=== PATIENT | male | born 1975 | race Hispanic/Latino ===

== ENCOUNTER 2020-04-06 18:52 | Inpatient (IN) | payer SELFPAY ==
[2020-04-06 19:40] LABS: #Lymphocytes 0.6 thou/uL (1.20-3.40); #Monocytes 0.6 thou/uL (0.11-0.59); %Eosinophils 0.1 % (0.0-10.0); %Lymphocytes 3.6 % (21.0-51.0); %Monocytes 4.1 % (0.0-10.0); %Neutrophils 92.1 % (42.0-75.0); Hemoglobin 15.3 g/dL (14.0-18.0); Mean Corpuscular HGB CONC 35.2 g/dL (32.0-36.0); Mean Corpuscular Hemoglobin 32.2 pg (27.0-31.0); Mean Corpuscular Volume 91.3 fL (78.0-98.0); Mean Platelet Volume 6.6 fL (7.4-10.4); Platelet Count 257 thou/uL (130-400); RBC Distribution Width 11.4 % (11.5-14.5); Red Blood Cell (RBC) Count 4.76 mill/uL (4.70-6.10); White Blood Cell (WBC) Count 15.2 thou/uL (4.8-10.8)
[2020-04-06] MEDS ORDERED: Morphine 4 MG/ML VIAL ONE (19:41)
[2020-04-06 19:46] LABS: PTT 28.8 sec (22.9-36.1); Prothrombin Time 13.4 sec (12.0-14.7)
[2020-04-06 20:01] LABS: ALT (SGPT) 38 U/L (8-55); AST (SGOT) 21 U/L (5-34); Albumin 4.4 g/dL (3.5-5.0); Alkaline Phosphatase 91 U/L (40-110); Anion Gap 16 mmol/L (10-20); BUN (Urea Nitrogen) 21 mg/dL (8.9-20.6); Bilirubin, Total 0.5 mg/dL (0.2-1.2); Calc. Creatinine Clearance 0 mL/min (70-130); Calcium 9.2 mg/dL (7.8-10.44); Carbon Dioxide 22 mmol/L (22-29); Chloride 102 mmol/L (98-107); Estimated GFR-MDRD 74; Globulin 2.7 g/dL (2.4-3.5); Glucose 141 mg/dL (70-105); Potassium 3.8 mmol/L (3.5-5.1); Protein, Total 7.1 g/dL (6.0-8.3); Sodium 136 mmol/L (136-145)
--- NOTE | 2020-04-06 20:10 | RAD ---
Right ankle 3 views HISTORY: Fall. Injury. FINDINGS: There is near complete medial dislocation of the talus in relation to the distal tibia with 1.2 cm impaction of the lateral talar dome into the comminuted fracture at the medial tibial plafond. Extensive medial displacement of a comminuted sagittally oriented fracture through the media l aspect of the distal tibia with additional comminuted oblique fracture at the base of the medial malleolus. Multiple small ossific fragments about the ankle mortise and fracture planes. Distal fibula is intact. IMPRESSION : Pilon fracture distal right tibia with medial dislocation.
--- NOTE | 2020-04-06 20:22 | RAD ---
SINGLE VIEW OF THE CHEST: 04/06/20 COMPARISON: None. HISTORY: Fall with ankle fracture and chest pain. FINDINGS: Single view of the chest shows a normal sized cardiomediastinal silhouette. There is no evidence of c onsolidation, mass, or pleural effusion. The bones are unremarkable. IMPRESSION: No evidence of acute cardiopulmonary disease. POS: EAA
[2020-04-06] MEDS ORDERED: Fentanyl 100 MCG/2 ML VIAL ONE ×4 (20:48→23:25)
[2020-04-06] MEDS ORDERED: Midazolam HCl 2 mg/2 ml Vial ONE (20:48)
[2020-04-06] MEDS ORDERED: Ondansetron PF 4 MG/2 ML Vial IVP PRN (20:50)
[2020-04-06] MEDS ORDERED: Dextrose 50% Abboject 50 ML SYRINGE SLOW IVP PRN (20:50)
[2020-04-06] MEDS ORDERED: hydrALAZINE 20 MG/ML VIAL SLOW IVP PRN (20:50)
[2020-04-06] MEDS ORDERED: Dextrose 5% in Water 1,000 ML IV PRN (20:50)
[2020-04-06] MEDS ORDERED: traMADol HCl 50 MG TAB PO PRN ×2 (20:52)
--- NOTE | 2020-04-06 21:13 | RAD ---
Right foot 3 views HISTORY: Fall. Injury. FINDINGS: Lisfranc joint alignment is anatomic. Scattered mild osteoarthritic changes are apparent. Plantar arch is maintained. Soft tissue swelling about the ankle and hindfoot. Comminuted intra-articular fracture dislocation at the ankle is partially visualized. IMPRESSION : Ankle fracture/dislocation. No acute abnormalities of the foot are demonstrated.
[2020-04-06] MEDS ORDERED: PROPOFOL 200 MG/20 ML VIAL ONE (21:27)
[2020-04-06] MEDS ORDERED: Lidocaine 1% PF 5 ML VIAL ONE (21:27)
[2020-04-06] MEDS ORDERED: Rocuronium Bromide 10 MG/ML (10ML VIAL) ONE (21:27)
--- NOTE | 2020-04-06 22:16 | HP ---
The trauma surgeon is Dr. Giron. CONSULTING PHYSICIAN: Dr. Guzman. HISTORY OF PRESENT ILLNESS: The patient is a 45-year-old male who presents to the emergency department via EMS after a fall from a roof about 9 feet from the ground. The patient reports it was a mechanical fall. He is complaining of right distal tib-fib pain. There is deformity at the site. He denies loss of consciousness or hitting his head. He denies anticoagulation use. He reported landing on his feet and subsequently onto his left side. States he did not hit his head at any time. He was not able to ambulate afterwards. He reports his pain is at a 7/10 after receiving IV pain medications. REVIEW OF SYSTEMS: All additional 10-point review of systems negative except as indicated above. PAST MEDICAL HISTORY: None. PAST SURGICAL HISTORY: None. SOCIAL HISTORY: The patient denies tobacco, drug, and alcohol use. 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 MEDICATIONS: None. ALLERGIES: NO KNOWN DRUG ALLERGIES. PHYSICAL EXAMINATION: VITAL SIGNS: Heart rate 98, respirations 22 oxygen saturation 97% on room air, and blood pressure 155/84. PRIMARY SURVEY: Airway intact. Adequate breath sounds bilaterally. 2+ pulses in bilateral radials, femorals, and DPs. GCS 15. Gross motor and sensation intact in all extremities. No laceration, bruising, or external bleeding. He has obvious deformity to his right distal tib-fib. SECONDARY SURVEY: HEAD: Normocephalic and atraumatic. No gross palpable skull deformities or tenderness. EYES: Pupils 3-2, equal, round, reactive bilaterally. ENT: No signs of trauma. C-SPINE: No step-offs or deformities, nontender. C-collar not in place. CHEST: Nontender. No crepitus, no abrasions or ecchymosis. Equal chest movement. ABDOMEN: Soft, nontender, nondistended. PELVIS: Stable to palpation. Nontender. No abrasions or ecchymosis noted. RECTAL: Deferred. GENITOURINARY: Deferred. EXTREMITIES: No gross deformity of the bilateral upper and left lower extremities. He has an obvious distal tib-fib fracture with significant swelling to the right foot. 2+ pulses in bilateral radials, femorals, and DPs. BACK/SPINE: No step-offs or deformities or tenderness to palpation of the thoracic or lumbar spine. No abrasions or ecchymosis noted. NEUROLOGIC: 5/5 strength in the bilateral nurse advocate and left lower extremity plantar flexion and dorsiflexion. The patient is not able to fully participate in right lower extremity dorsi and plantar flexion secondary to deformity and pain. The patient has gross normal sensation x4 extremities. LABORATORY FINDINGS: White count 15.2, hemoglobin 15.3, hematocrit 48.4, platelets 257. INR 1. Sodium 136, potassium 3.8, chloride 102, bicarb 22, BUN 21, creatinine 1.07, glucose 141, and lactic acid 4.3. DIAGNOSTIC FINDINGS: X-ray of the right ankle demonstrates pilon fracture, distal right tibia with medial displacement. Chest x-ray demonstrates no evidence of acute cardiopulmonary disease. X-ray of the right foot demonstrates ankle fracture/dislocation. No acute abnormalities of the foot are demonstrated. ASSESSMENT: 1. Mechanical fall from roof, about 9 feet. 2. Right distal tibial fracture, pilon. 3. Elevated lactic acid. 4. Acute traumatic pain. PLAN: The patient will be admitted to the Trauma Service. Dr. Guzman has evaluated the patient, and plan is to take the patient to the OR from the emergency department this evening to address his right distal tibial fracture. The patient will then go to the regular surgical nursing floor. He has already received a liter of fluid. We will continue IV fluid resuscitation. Repeat blood work in the morning including lactic acid. We will place the patient on both scheduled and p.r.n. pain medications. He will work with Physical and Occupational Therapy tomorrow postoperatively. If orthopedic surgery does not have any further orthopedic interventions planned, he will likely be discharged home tomorrow. This patient was discussed with Dr. Giron before this dictation. Job ID: [id number]
[2020-04-06] MEDS ORDERED: Succinylcholine Chloride 20 MG/ML 10 ml SYRINGE FS ONE (22:35)
[2020-04-06] MEDS ORDERED: SUGAMMADEX SODIUM 200 MG/2 ML VIAL ONE (22:35)
[2020-04-06] MEDS ORDERED: Meperidine HCl/PF 25 MG/ML VIAL ONE (22:44)
[2020-04-06] MEDS ORDERED: Promethazine HCl 25 MG/ML VIAL IM PRN (22:49)
[2020-04-06] MEDS ORDERED: Meperidine HCl/PF 25 MG/ML VIAL SLOW IVP PRN (22:49)
[2020-04-06] MEDS ORDERED: Ondansetron HCl/PF 4 MG/2 ML Vial IVP PRN (22:49)
[2020-04-06] MEDS ORDERED: Promethazine HCl 25 MG/ML VIAL SLOW IVP PRN (22:49)
--- NOTE | 2020-04-06 23:21 | RAD ---
Right ankle 2 views HISTORY: Fracture. External fixation. FINDINGS: Metallic bar now traverses the calcaneus with external fixator device in place. There is re duction of the tibiotalar dislocation. Extensively comminuted distal tibial fracture is again demonstrated.
[2020-04-07] MEDS: Morphine 4 MG/ML VIAL SLOW IVP PRN ×2 (00:33→03:23)
[2020-04-07] MEDS: Ibuprofen 800 MG TAB PO SCH ×2 (00:35→05:11)
[2020-04-07] MEDS: Cyclobenzaprine 10 MG TAB PO PRN ×2 (00:35→08:14)
[2020-04-07] MEDS: Acetaminophen 500 MG TAB PO SCH ×2 (00:35→05:11)
[2020-04-07 01:09] VITALS: BMI 32.7
[2020-04-07] MEDS: Famotidine/PF 20 mg/2ml Vial SLOW IVP SCH ×2 (01:31→08:13)
[2020-04-07] MEDS: Gabapentin 300 MG CAP PO SCH ×2 (01:31→08:14)
[2020-04-07] MEDS: Sodium Chloride 0.9% 1,000 ML IV SCH ×2 (01:31→08:13)
[2020-04-07] MEDS: Senokot S 8.6-50 MG TAB PO SCH ×2 (01:31→08:14)
[2020-04-07 05:30] LABS: Lactic Acid 0.9 mmol/L (0.5-2.2)
[2020-04-07 05:31] LABS: #Eosinphils 0.1 thou/uL (0.0-0.7); #Lymphocytes 1.7 thou/uL (1.20-3.40); #Monocytes 1.4 thou/uL (0.11-0.59); #Neutrophils 8.8 thou/uL (1.40-6.50); %Basophils 0.1 % (0.0-1.0); %Eosinophils 0.5 % (0.0-10.0); %Lymphocytes 14.3 % (21.0-51.0); %Monocytes 11.5 % (0.0-10.0); %Neutrophils 73.5 % (42.0-75.0); Hemoglobin 13.3 g/dL (14.0-18.0); Mean Corpuscular HGB CONC 33.6 g/dL (32.0-36.0); Mean Corpuscular Hemoglobin 30.9 pg (27.0-31.0); Mean Platelet Volume 6.8 fL (7.4-10.4); Platelet Count 238 thou/uL (130-400); RBC Distribution Width 11.5 % (11.5-14.5)
[2020-04-07 05:35] LABS: Anion Gap 12 mmol/L (10-20); BUN (Urea Nitrogen) 13 mg/dL (8.9-20.6); Calc. Creatinine Clearance 162 mL/min (70-130); Calcium 8.2 mg/dL (7.8-10.44); Carbon Dioxide 25 mmol/L (22-29); Chloride 104 mmol/L (98-107); Estimated GFR-MDRD Greater than 90; Glucose 100 mg/dL (70-105); Magnesium 1.5 mg/dL (1.6-2.6); Phosphorus 4.2 mg/dL (2.3-4.7); Potassium 3.5 mmol/L (3.5-5.1); Sodium 137 mmol/L (136-145)
--- NOTE | 2020-04-07 05:35 | CON ---
DATE OF CONSULTATION: 04/06/2020 HISTORY OF PRESENT ILLNESS: Mr. Dunaway is a 45-year-old male, fell from approximately 13 feet off a roof. He was seeing some rain, and he shifted and fell directly onto his right ankle. The patient was seen in [facility], brought here by ambulance for higher level of care. The patient's pain is at 10/10. He is a Swedish-speaking male, who is originally from the [place] area. He was helping a friend while at work. PAST MEDICAL HISTORY: Seasonal allergies. PAST SURGICAL HISTORY: None. ALLERGIES: NO KNOWN DRUG ALLERGIES. MEDICATIONS: None. SOCIAL HISTORY: Denies alcohol, tobacco, or drug use. 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 REVIEW OF SYSTEMS: Denies fevers, chills, nausea, vomiting, diarrhea, chest pain, shortness of breath, visual or auditory hallucination, or psychiatric changes. PHYSICAL EXAMINATION: VITAL SIGNS: The patient's vitals, afebrile. GENERAL: Resting comfortably in bed. Alert and oriented male, Swedish-speaking , in no acute distress. EXTREMITIES: Right lower extremity, he has diffuse swelling in the right lower extremity. He has palpable DP and PT pulses. He is able to just gently wiggle his toes. He has obvious varus deformity of the ankle with no open wounds. Pain with palpation. No tibial changes. No knee effusions. No pain with hip external and internal rotation. IMAGING DATA: Radiographs of his right ankle show a pilon fracture with a varus angulation with a large medial component with complete subchondral impaction. IMPRESSION: Pilon fracture right lower extremity. ASSESSMENT AND PLAN: I discussed with the patient through an dirt shoveler that he needs to have an external fixator placed to give soft tissues rest of the ankle , for a need for definitive ORIF.The patient will have an external fixator placed and will have it brought out to length. He will need definitive care in probably two weeks when soft tissue has had a rest and decreased. I have discussed with the patient that he has a difficult problem. He has a significant pilon injury, which can lead to posttraumatic arthritic changes, need for fusion. I discussed the risk of compartment syndrome. Discussed the risk of loss of life or limb, need for further surgeries, damage to nerves, arteries, and tendons, need for ex-fix removal, and deep vein thrombosis. The patient understands this. He understands he will be taken to the operative suite. He is n.p.o. at this time. All of the patient's questions were answered through an dirt shoveler and he elects to proceed. Job ID: [id number] MTDD
[2020-04-07] MEDS ORDERED: CEFAZOLIN 2 GM in Premix Bag 1 BAG IVPB SCH (06:00)
--- NOTE | 2020-04-07 06:50 | OP ---
DATE OF PROCEDURE: 04/06/2020 PREOPERATIVE DIAGNOSIS: Right closed pilon fracture. POSTOPERATIVE DIAGNOSIS: Right closed pilon fracture. PROCEDURES PERFORMED: 1. Closed reduction of pilon fracture. 2. Application of planned external fixator. MANAGER CORPORATE RESPONSIBILITY: None. ANESTHESIOLOGIST: Mikal Rutherford MD ANESTHESIA: The patient received a general endotracheal intubation. ESTIMATED BLOOD LOSS: Less than 20 mL. TOURNIQUET TIME: None. ANTIBIOTICS: Ancef 2 g. IMPLANTS: An external fixator calcaneal pin, 5 mm x 150 mm self-drilling self-tapping Schanz pins, a 5-hole pin-to-bar clamps with two bar-to-pin clamps. COMPLICATIONS: None. HISTORY OF PRESENT ILLNESS: Mr. Dunaway is a 45-year-old male, who sustained a fall from about somewhere between 12 and 15 feet off a roof onto his right ankle. The patient was brought in by EMS, transferred from [place]. He had a severe pilon fracture and soft tissue swelling. I discussed given the severity, the mechanism of injury and force, that the patient should have an A-frame external fixator applied to help with the soft tissue swelling for a staged ORIF of his pilon. The patient is from [place]. I discussed this could be done here or there, but needed to have soft tissue rest in order to decrease the risk of ulceration as well as the need for stabilization prior to fixation. I discussed the risks and benefits through language interpreter including pain, scar, bleeding, infection, damage to vital structures, decreased range of motion and strength, arthritis, failure of procedure, continued pain, loss of life or limb, DVT. He understood these risks and benefits and elected to proceed. DESCRIPTION OF PROCEDURE: Time-out was performed designating the patient's right lower extremity as the operative site, based on site, consent, and markings. After time-out, the patient's right lower extremity was prepped and draped in sterile fashion, after Ancef was given to the patient. Under fluoroscopic guidance, AP and lateral radiographs, I placed a calcaneal pin from medial to lateral, using my knife to centralize to place this stab incision, bluntly dissected, placed the pin under fluoroscopic guidance medially and laterally ensuring it was within the calcaneus in a transverse setting, making sure the ankle was reduced. I then moved to the patient's tibia, used a 5-hole clamp. We used the guides through and ensured on AP and lateral radiographs that I was just about a 3rd off the anterior crest, drilled trying to make my pin vertical, drill bicortically. We then pulled the patient into reduction. I clamped down the 5-0 pin plate down onto the two tibial pins, placed the pin-to-bar clamps on the calcaneal pins medially and laterally trying to expand the distance. I then placed the clamps onto the 5-hole clamp proximally. I then placed 400 mm graphite bars. We pulled traction and reduced the patient with a valgus force and posterior translation of the proximal segment and some distraction, but I felt like overall we had good soft tissue stretch and had good alignment of the ankle on AP and lateral radiographs. We tightened up all of our clamps, ensured on AP and lateral radiographs it is still reduced. I liked the overall position. We washed, put Xeroform and Kerlix around the pins, placed a Mepilex on the patient's heel to help with soft tissue rest and placed ABDs for soft tissue rest posteriorly. The patient will be admitted to Trauma, receive a CT scan of his right lower extremity. He will need definitive care either in two weeks here vs home. Job ID: [id number] [facility]
[2020-04-07 07:49] VITALS: TEMP 98.2
--- NOTE | 2020-04-07 08:32 | RAD ---
2 VIEWS RIGHT ANKLE: Date: 04/06/2020 COMPARISON: 04/06/2020 at 1951 hours. HISTORY: Ankle fracture/dislocation. FINDINGS/IMPRESSION: Multiple limited fluoroscopic views of the right ankle were submitted for interpretation. The patient has undergone placement of an external fixation device with the pins in the tibia and calcaneus. The fracture has been pulled back out to length with better alignment of the ankle mortise. There is sti ll a comminuted fracture of the distal tibia and a small separation of the fracture fragments along t he distal aspect of the tibia at the tibiotalar joint. POS: KEATONA
[2020-04-07] MEDS ORDERED: Polyethylene Glycol 3350 17 GM Packet PO SCH (09:00)
--- NOTE | 2020-04-07 09:45 | CT ---
EXAM: CT of the right ankle HISTORY: Right ankle fracture status post external fixation COMPARISON: None TECHNIQUE: Multiple contiguous axial images were obtained a CT of the right ankle without contrast. S agittal and coronal reformats were performed. FINDINGS: The pins and external fixation device are seen in the calcaneus. Diffuse soft tissue swelling is seen . There is a comminuted fracture of the distal tibia which is intra-articular. There is at least a 1.8 cm gap in the bone at the articular interface of the tibiotalar joint. Too numerous to count comminuted fracture fragments are seen. Small fracture fragments appear to be present within the join t along the lateral aspect of the talar dome. There may be a small osteochondral injury along the talar dome along the lateral aspect where these fracture fragments are present. No dislocation is see n at this time. No fracture of the fibula is seen. The calcaneus and bones of the foot show no evidence of fracture. IMPRESSION: Severely comminuted distal tibia fracture.
[2020-04-07 11:36] VITALS: BP 151/100
--- NOTE | 2020-04-07 17:44 | DIS ---
DATE OF ADMISSION: 04/07/2020 DATE OF DISCHARGE: 04/07/2020 CONSULTS: Orthopedic Surgery, Dr. Guzman. PROCEDURES: On 04/06/2020, closed reduction of the pilon fracture and application of planned external fixator for his right closed pilon fracture. PRIMARY DIAGNOSES: Fall from roof approximately 9 feet, right distal tibial fracture, pilon. Elevated lactate, acute traumatic pain secondary to above injury. DISCHARGE MEDICATIONS: 1. Aspirin 81 mg p.o. b.i.d. for 2 weeks for VTE prophylaxis. 2. Keflex 500 mg p.o. b.i.d. for 7 days. 3. Flexeril 10 mg p.o. 3 times a day p.r.n. muscle spasms #20. 4. Gabapentin 300 mg p.o. 3 times a day #30 for pain p.r.n. 5. Tramadol 50 mg p.o. q.6 hours p.r.n. pain #30. 6. Tylenol 1000 mg p.o. q.6 hours. 7. Ibuprofen 800 mg p.o. q.8 hours p.r.n. pain. 8. MiraLAX as needed for constipation. 9. Senokot as needed for constipation. No discontinued medications. HISTORY OF PRESENT ILLNESS/HOSPITAL COURSE: This is a 45-year-old gentleman, who presented to the emergency room via EMS after a fall from roof approximately 9 feet from the ground. The patient reports a mechanical fall. He complained of right distal tibia-fibula pain. The patient had no loss of consciousness. Denies hitting his head or any other injuries. The patient does not take any medications or denies being on anticoagulation use. It was reported that the patient landed on his feet and then fell onto his left side. The patient was not able to ambulate after falling. Trauma Services was asked to admit the patient. The patient's pain was controlled pre and postop. The patient was able to ambulate using crutches with physical therapy. Physical Therapy felt that the patient was safe for discharge. The patient was tolerating a regular diet and pain was well controlled. The patient voiced no complaints or concerns. On the day of discharge, the patient was examined by Dr. Giron. His vital signs were stable, laboratory data was unremarkable. The patient's lactic acid had returned to normal. The patient's exam was unremarkable including cardiopulmonary and GI exam. The patient was deemed stable for discharge home. DISPOSITION: Stable. DISCHARGE INSTRUCTIONS: 1. Location: Home. 2. Diet: Regular diet as tolerated. 3. Activity: Orthopedic limitations, nonweightbearing right lower extremity. The patient is to leave his ex-fix and bandage in place for one week till follow up appointment. The patient is to ambulate with crutches. The patient should move/ambulate frequently to avoid blood clots in legs. 4.Follow up with Dr. Brown's in 1 week. No need to follow up with Trauma Services. Call for any questions. Job ID: [id number] MTDD
[2020-04-07] MEDS ORDERED: Cephalexin 250 MG CAP PO SCH (21:00)
[2020-04-07] MEDS ORDERED: Aspirin 81 mg Enteric Coated Tablet PO SCH (21:00)
--- NOTE | 2020-04-08 08:29 | PRG ---
DATE OF SERVICE: 04/07/2020 SUBJECTIVE: Mr. Dunaway is a 45-year-old male status post fall from a roof while vaibhav. The patient underwent an external fixator of his right pilon. He is currently resting comfortably in bed. OBJECTIVE: VITAL SIGNS: Temperature 98.2, pulse 82, respiratory rate 16, saturation 96% on room air, blood pressure 150/93. GENERAL: male, in no acute distress. EXTREMITIES: Right lower extremity external fixator in place. Brisk cap refill. The patient's sensation intact. He is wiggling his toes. No strikethrough. He has padding for his heel and a stable knee exam. IMPRESSION: Right pilon fracture. ASSESSMENT: The patient is going for CT scan of his right pilon for characterization of the fracture fragments. The patient may be discharged to home. He will be weightbearing as tolerated in his left lower extremity and need to ice and elevate his right foot. He will need follow up. I discussed the patient's care with Dr. Brwon. He will take over his care next week. He needs to [facility] week for evaluation and operative fixation. The patient may also seek care in [place], where he is from. Job ID: [id number]
--- NOTE | 2020-04-09 05:50 | PQF ---
CLINICAL DOCUMENTATION CLARIFICATION FORM: Dear : Rizwan Guzman Date / Time: 04/09/2020 05:49 Please exercise your independent, professional judgment in responding to the clarification form. Clinical indicators are provided on the bottom of this form for your review Can you please clarify the diagnosis being treated? Please check appropriate box(es): [ ] Associated Diagnosis: Metabolic Acidosis [ ] Not clinically significant laboratory findings [ ] Other diagnosis [ ] Unable to determine Physician Signature: Date/Time: For continuity of documentation, please document condition throughout progress notes and discharge summary. Thank You. To be completed by CDI/Coding staff for physician review: Present Clinical Indicators - Signs / Symptoms / Labs Results and Location in Medical Record [x] Lactic Acid: 04/06=4.3 01/06=2.0 Labs 04/06 [x] elevated lactic acid HP 04/07 [x] s/p mechanical fall DS 04/07 Present Risk Factors Results and Location in Medical Record [x] 45 year old male HP 04/07 [x] s/p fall HP 04/07 Present Treatments Results and Location in Medical Record [x] Series of electrolyte labs Collected 04/07 [x] IVF MAR 04/06 CDS/Truck Driving Signature:Tavares Perez Phone #: [phone] Date/Time:04/09/2020 05:49 This is a permanent part of the Medical Record [email or web address]
== END 2020-04-07 12:30 | disposition home or self-care (01) | DRG 494 ==
LOC: ERS 18:52 → SDC/OP 21:16 → SURG A 04-07 00:26
PROVIDERS: ADMIT Surgery; ATTEND Surgery
PROC: 0QSG35Z Reposition Right Tibia with External Fixation Device, Percutaneous Approach (ICD-10-PCS; principal; 2020-04-06)
DX: S82.871A Displaced pilon fracture of right tibia, initial encounter for closed fracture (principal); W13.2XXA Fall from, out of or through roof, initial encounter; J30.2 Other seasonal allergic rhinitis
CPT/HCPCS: 36415; 71045; 76000; 80048; 80053; 83605; 83735; 84100; 85025; 85610; 85730; 86850; 86900; 86901; 96374; C1713; G0390; J0690; J2175; J2250; J2270; J2704; J3010; S0028